=== PATIENT | female | born 1990 | race Two or more races ===

== ENCOUNTER 2017-09-10 13:45 | Emergency (ER) | payer OTHER ==
[~2017-09-10] VITALS: Ht 172.7 cm; Wt 163.3 kg
[2017-09-10 14:02] VITALS: BP 160/100
== END 2017-09-10 16:20 | disposition left against medical advice (07) ==
LOC: ER 13:57
DX: M54.5 Low back pain (principal); Z53.21 Procedure and treatment not carried out due to patient leaving prior to being seen by health care provider

== ENCOUNTER 2022-07-15 08:55 | Emergency (ER) | payer MEDICAID, OTHER ==
[~2022-07-15] VITALS: Ht 172.7 cm; Wt 136.6 kg
[2022-07-15 09:17] VITALS: BP 138/91
[2022-07-15 09:33] LABS: Basophils # (auto) 0 10 ^3/uL (0-0.2); Basophils % (auto) 0.5 % (0.0-2.0); Eosinophils # (auto) 0 10 ^3/uL (0-0.8); Eosinophils % (auto) 0.5 % (0.0-7.0); Hematocrit 42.5 % (36.0-46.0); Hemoglobin 13.7 g/dL (12.2-16.2); Lymphocytes # (auto) 1.6 10 ^3/uL (0.4-5.4); Lymphocytes % (auto) 23.8 % (10.0-50.0); Mean Corpuscular Hemoglobin 27.7 pg (28.0-32.0); Mean Corpuscular Hgb Conc. 32.2 g/dL (32.0-36.0); Mean Corpuscular Volume 85.8 fL (80.0-100.0); Monocytes # (auto) 0.5 10 ^3/uL (0-1.3); Monocytes % (auto) 7.7 % (0.0-12.0); Neutrophils # (auto) 4.6 10 ^3/uL (1.6-8.6); Neutrophils % (auto) 67.5 % (37.0-80.0); Nucleated Red Blood Cells % 0.1 %; Red Blood Cells 4.95 10^6/uL (4.0-5.20); Red Cell Distribution Width 14.4 % (11.8-14.3); White Blood Cell 6.7 10^3/uL (4.4-10.8)
[2022-07-15 09:47] LABS: Urine Bacteria FEW /hpf (None Seen); Urine Blood 3+ /uL (Negative); Urine Mucus FEW (None Seen); Urine Specific Gravity 1.031 (1.001-1.035); Urine WBC 31 /hpf (0 - 5)
[2022-07-15 10:36] LABS: Calcium 9.1 mg/dL (8.5-10.1)
[2022-07-15] MEDS ORDERED: ACETAMINOPHEN 500 MG TAB PO ONE (12:15)
[2022-07-15] MEDS ORDERED: cefTRIAXone SOD 1,000 MG VL IM ONE (12:15)
[2022-07-15] MEDS ORDERED: NITR-87 PO (12:16)
== END 2022-07-15 12:33 | disposition home or self-care (01) ==
LOC: ER 08:57
DX: O20.0 Threatened abortion (principal); O23.41 Unspecified infection of urinary tract in pregnancy, first trimester; N39.0 Urinary tract infection, site not specified; Z79.899 Other long term (current) drug therapy; Z91.013 Allergy to seafood; Z3A.01 Less than 8 weeks gestation of pregnancy
CPT/HCPCS: 36415; 76775; 76801; 76817; 80048; 81001; 84702; 85025; 96372; 99284; J0696

== ENCOUNTER 2022-09-12 13:40 | Inpatient (IN) | payer MEDICAID ==
[~2022-09-12] VITALS: Ht 167.6 cm; Wt 139.8 kg
[~2022-09-12 13:40] MED LIST: NITR-87 PO
[2022-09-12] MEDS ORDERED: cefTRIAXone 1GM/50ML D5W 50 ML IV ONE (14:15)
[2022-09-12] MEDS ORDERED: SODIUM CHLORIDE 0.9% 1,000 ML IV ONE (14:15)
[2022-09-12] MEDS ORDERED: HYDROcodone-ACET 10/325MG TAB PO ONE (14:30)
[2022-09-12] MEDS ORDERED: KETOROLAC TROMETH 60MG/2ML VIAL IM ONE (14:30)
[2022-09-12 14:33] LABS: Basophils # (auto) 0 10 ^3/uL (0-0.2); Basophils % (auto) 0.4 % (0.0-2.0); Eosinophils # (auto) 0 10 ^3/uL (0-0.8); Eosinophils % (auto) 0.1 % (0.0-7.0); Hematocrit 42.1 % (36.0-46.0); Hemoglobin 13.9 g/dL (12.2-16.2); Lymphocytes # (auto) 1.2 10 ^3/uL (0.4-5.4); Lymphocytes % (auto) 10.2 % (10.0-50.0); Mean Corpuscular Hemoglobin 27.5 pg (28.0-32.0); Mean Corpuscular Volume 83.4 fL (80.0-100.0); Monocytes # (auto) 0.6 10 ^3/uL (0-1.3); Monocytes % (auto) 5.6 % (0.0-12.0); Neutrophils # (auto) 9.4 10 ^3/uL (1.6-8.6); Neutrophils % (auto) 83.7 % (37.0-80.0); Nucleated Red Blood Cells % 0.1 %; Red Blood Cells 5.05 10^6/uL (4.0-5.20); Red Cell Distribution Width 13.7 % (11.8-14.3); White Blood Cell 11.2 10^3/uL (4.4-10.8)
[2022-09-12 14:46] LABS: Urine Bacteria NONE SEEN /hpf (None Seen); Urine Blood 3+ /uL (Negative); Urine Mucus FEW (None Seen); Urine Specific Gravity 1.031 (1.001-1.035); Urine WBC 9 /hpf (0 - 5)
[2022-09-12] MEDS ORDERED: ONDANSETRON ODT 4 MG TAB PO ONE (15:00)
[2022-09-12 15:08] LABS: Albumin 3.7 g/dL (3.4-5.0); BUN/Creatinine Ratio 12.3; Calcium 9.2 mg/dL (8.5-10.1); Potassium 3.7 mmol/L (3.5-5.1)
[2022-09-12 15:10] LABS: Bilirubin, Total 0.5 mg/dL (0.2-1.0); Total Protein 8.2 g/dL (6.4-8.2)
[2022-09-12] MEDS: LACTATED RINGER'S 1,000 ML IV SCH (16:15)
[2022-09-12] MEDS ORDERED: MORPHINE SULFATE INJ 2 MG/ml SYRG IV PRN (16:15)
[2022-09-12] MEDS ORDERED: ACETAMINOPHEN 325 MG TAB PO PRN (16:15)
[2022-09-12] MEDS ORDERED: TAMSULOSIN HYDROCHLORIDE 0.4 MG CAP PO ONE (16:15)
[2022-09-12] MEDS ORDERED: DEXTROSE (50%) 50ML SYRG IV PRN (16:30)
[2022-09-12] MEDS ORDERED: PANTOPRAZOLE 40 MG/10 ML VIAL INJ IV ONE (16:30)
[2022-09-12] MEDS: InsuLIN REG 1unit/0.01ml Soln (100units/ml) SC SCH ×2 (17:00→22:00)
[2022-09-12 17:05] LABS: Cholesterol 200 mg/dL (< 200); HDL Cholesterol 56 mg/dL (40-59); LDL Cholesterol 134 mg/dL (< 100); Triglycerides 93 mg/dL (< 150)
[2022-09-12] MEDS: ACCU-CHEK COMFORT CURVE STRIP VI SCH ×2 (17:09→22:04)
[2022-09-12] MEDS: HYDROcodone-ACET 5/325MG TAB PO PRN (18:05)
[2022-09-12] MEDS: TAMSULOSIN HYDROCHLORIDE 0.4 MG CAP PO SCH (18:06)
[2022-09-12] MEDS: ONDANSETRON HCL 4 MG/2 ML VIAL IV PRN (19:56)
[2022-09-12] MEDS ORDERED: PROMETHAZINE HCL 25 MG/ML 1ML IV ONE (22:00)
[2022-09-12] MEDS ORDERED: KETOROLAC TROMETH 30 MG/ML 1ML VIAL IV ONE (22:15)
[2022-09-13] MEDS: LACTATED RINGER'S 1,000 ML IV SCH ×3 (00:15→16:03)
[2022-09-13] MEDS ORDERED: PROMETHAZINE HCL 25 MG/ML 1ML IV ONE (05:45)
[2022-09-13] MEDS ORDERED: KETOROLAC TROMETH 30 MG/ML 1ML VIAL IV ONE (05:45)
[2022-09-13 06:05] LABS: BUN/Creatinine Ratio 10.4; Calcium 8.4 mg/dL (8.5-10.1); Potassium 3.7 mmol/L (3.5-5.1)
[2022-09-13 06:08] LABS: Bilirubin, Total 0.6 mg/dL (0.2-1.0); Total Protein 6.2 g/dL (6.4-8.2)
[2022-09-13] MEDS: InsuLIN REG 1unit/0.01ml Soln (100units/ml) SC SCH ×4 (06:37→22:00)
[2022-09-13] MEDS: ACCU-CHEK COMFORT CURVE STRIP VI SCH ×4 (06:37→22:00)
[2022-09-13 07:05] LABS: Basophils # (auto) 0 10 ^3/uL (0-0.2); Basophils % (auto) 0.4 % (0.0-2.0); Eosinophils # (auto) 0 10 ^3/uL (0-0.8); Eosinophils % (auto) 0.1 % (0.0-7.0); Hematocrit 34.4 % (36.0-46.0); Hemoglobin 11.7 g/dL (12.2-16.2); Lymphocytes # (auto) 2.2 10 ^3/uL (0.4-5.4); Lymphocytes % (auto) 21.3 % (10.0-50.0); Mean Corpuscular Hemoglobin 28.4 pg (28.0-32.0); Mean Corpuscular Hgb Conc. 34.1 g/dL (32.0-36.0); Mean Corpuscular Volume 83.5 fL (80.0-100.0); Monocytes # (auto) 1.1 10 ^3/uL (0-1.3); Monocytes % (auto) 10.7 % (0.0-12.0); Neutrophils # (auto) 7.1 10 ^3/uL (1.6-8.6); Neutrophils % (auto) 67.5 % (37.0-80.0); Nucleated Red Blood Cells % 0.1 %; Red Blood Cells 4.11 10^6/uL (4.0-5.20); White Blood Cell 10.6 10^3/uL (4.4-10.8)
[2022-09-13] MEDS: cefTRIAXone 1GM/50ML D5W 50 ML IV SCH (08:53)
[2022-09-13] MEDS ORDERED: MANNITOL FTV 25% 12.5 GM/50 ML 50 ML IV ONE (10:30)
[2022-09-13] MEDS: ENOXAPARIN SOD 40 MG/0.4 ML SYRINGE SC SCH (11:31)
[2022-09-13] MEDS: PANTOPRAZOLE 40 MG/10 ML VIAL INJ IV SCH (11:32)
[2022-09-13 12:30] VITALS: BP 115/78
[2022-09-13] MEDS ORDERED: LEVO50TA7 PO (14:39)
[2022-09-13] MEDS ORDERED: PANT1INJ3 PO (14:39)
[2022-09-13] MEDS ORDERED: METF-372 PO (14:39)
[2022-09-13] MEDS ORDERED: FAMO-12 PO (14:39)
[2022-09-13 16:25] VITALS: BP 145/89
[2022-09-13] MEDS: TAMSULOSIN HYDROCHLORIDE 0.4 MG CAP PO SCH (18:09)
[2022-09-13 20:00] VITALS: BP 137/88
[2022-09-13] MEDS: HYDROcodone-ACET 5/325MG TAB PO PRN (21:30)
[2022-09-13] MEDS: PROMETHAZINE HCL 25 MG/ML 1ML IV PRN (21:31)
[2022-09-13 22:00] VITALS: BP 137/88
[2022-09-14] MEDS: LACTATED RINGER'S 1,000 ML IV SCH ×2 (00:15→10:45)
[2022-09-14] MEDS: PROMETHAZINE HCL 25 MG/ML 1ML IV PRN (04:42)
[2022-09-14 05:00] VITALS: BP 136/64
[2022-09-14 06:21] LABS: Basophils # (auto) 0 10 ^3/uL (0-0.2); Basophils % (auto) 0.5 % (0.0-2.0); Eosinophils # (auto) 0 10 ^3/uL (0-0.8); Eosinophils % (auto) 0.7 % (0.0-7.0); Hematocrit 34.3 % (36.0-46.0); Hemoglobin 11.6 g/dL (12.2-16.2); Lymphocytes # (auto) 1.5 10 ^3/uL (0.4-5.4); Lymphocytes % (auto) 24.5 % (10.0-50.0); Mean Corpuscular Hemoglobin 28.1 pg (28.0-32.0); Mean Corpuscular Hgb Conc. 33.9 g/dL (32.0-36.0); Mean Corpuscular Volume 82.8 fL (80.0-100.0); Monocytes # (auto) 0.6 10 ^3/uL (0-1.3); Monocytes % (auto) 9.8 % (0.0-12.0); Neutrophils % (auto) 64.5 % (37.0-80.0); Nucleated Red Blood Cells % 0.1 %; Red Blood Cells 4.15 10^6/uL (4.0-5.20); White Blood Cell 6.2 10^3/uL (4.4-10.8)
[2022-09-14] MEDS: InsuLIN REG 1unit/0.01ml Soln (100units/ml) SC SCH ×2 (06:29→11:02)
[2022-09-14] MEDS: ACCU-CHEK COMFORT CURVE STRIP VI SCH ×2 (06:29→11:01)
[2022-09-14 06:32] LABS: BUN/Creatinine Ratio 9.8; Calcium 8.4 mg/dL (8.5-10.1); Potassium 3.4 mmol/L (3.5-5.1)
[2022-09-14] MEDS: ONDANSETRON HCL 4 MG/2 ML VIAL IV PRN (07:10)
[2022-09-14 09:00] VITALS: BP 138/79
[2022-09-14] MEDS: cefTRIAXone 1GM/50ML D5W 50 ML IV SCH (09:26)
[2022-09-14] MEDS: PANTOPRAZOLE 40 MG/10 ML VIAL INJ IV SCH (09:26)
[2022-09-14] MEDS: ENOXAPARIN SOD 40 MG/0.4 ML SYRINGE SC SCH (09:28)
[2022-09-14] MEDS ORDERED: CEPH-510 PO (11:55)
[2022-09-14] MEDS ORDERED: HYDR-4902 PO (11:55)
[2022-09-14] MEDS ORDERED: TAM04C PO (11:55)
[2022-09-14] MEDS ORDERED: POTASSIUM EFFERVESENT TAB 25 MEQ PO ONE (12:00)
[2022-09-14 13:00] VITALS: BP_SYST 150; BP_SYST 158; BP_DIAS 60; BP_DIAS 84
[2022-09-14 13:09] VITALS: BP 138/79
== END 2022-09-14 14:30 | disposition home or self-care (01) | DRG 465 ==
LOC: ER 13:40 → OVERFLOW 16:21 → CENTRAL 09-13 09:45
PROVIDERS: ADMIT Registered Nurse; ATTEND Nurse Practitioner Acute Care
DX: N13.2 Hydronephrosis with renal and ureteral calculous obstruction (principal); N17.9 Acute kidney failure, unspecified; E11.9 Type 2 diabetes mellitus without complications; E66.01 Morbid (severe) obesity due to excess calories; N10 Acute pyelonephritis; Z20.822 Contact with and (suspected) exposure to COVID-19; Z68.42 Body mass index [BMI] 45.0-49.9, adult; Z91.013 Allergy to seafood; Z87.59 Personal history of other complications of pregnancy, childbirth and the puerperium; Z87.440 Personal history of urinary (tract) infections
CPT/HCPCS: 36415; 74176; 80048; 80053; 80061; 81001; 82962; 83036; 84443; 84702; 85025; 87040; 87086; 87426; 96361; 96365; 96375; C9113; G0378; J0696; J1885; J2405; Q0162